=== PATIENT | male | born 1960 | race Caucasian/White ===

== ENCOUNTER 2017-05-25 06:23 | Outpatient (CLI) | payer MEDICAID ==
[~2017-05-25] VITALS: Ht 175.3 cm; Wt 81.8 kg
--- NOTE | ~2017-05-25 | HEMODYNAMI ---
PATIENT:MARLA PIERCE MEDICAL RECORD: [id number] : 58 LOCATION:[facility] ADMISSION DATE: 05/25/17 Generatedon:05/25/20179:14 Patient name: MARLA PIERCE Patient #: [id number] SSN: : 1960 Date of study: 05/25/2017 Page: Of Hemodynamic Procedure Report Patient Data Patient Demographics Procedure consent was obtained First Name: MARLA Gender: Male Last Name: KARI : 1960 Middle Initial: D Age: 56 year(s) Patient #: [id number] Race: Unknown Additional ID: [id number] Contact details [address]: [address] [place] [address] State: [place] City: [place] Zip code: [address] Past Medical History Allergies: No known allergies Admission Admission Data Admission Date: 05/25/2017 Admission Time: 6:23 Height (in.): 72 BSA: 2.12 (m2) Height (cm.): 182.88 BMI: 26.72 (kg/m2) Weight (lbs.): 197 Weight (kg.): 89.36 Procedure Procedure Types Cath Procedure Diagnostic Procedure LHC LHC w/Coronaries Miscellaneous Procedures Moderate Sedation up to 15 minutes Procedure Description Procedure Date Procedure Date: 05/25/2017 Procedure Start Time: 8:47 Procedure End Time: 9:13 Procedure Staff Name Function Cristopher Butterfield MD Performing Physician Mike Tirado RN Die Designer Apprentice Martha Patel RT Monitor Morro Lowery RT Scrub Thelma Gomez RN Nurse Procedure Data Cath Procedure Fluoroscopy Diagnostic fluoroscopy Total fluoroscopy Time: 4.8 time: 4.8 min min Diagnostic fluoroscopy Total fluoroscopy dose: 796 dose: 796 mGy mGy Contrast Material Contrast Material Type Amount (ml) Isovue 300 102 Entry Location Entry Primary Successful Side Size Upsize Upsize Entry Closure Hernandez ccessful Closure Location (Fr) 1 (Fr) 2 (Fr) Remarks Device Remarks Femoral Right 5 Fr Exoseal artery Radial Right 6 Fr Mechanical TR Band artery Short Compression Estimated blood loss: 10 ml Diagnostic catheters Device Type Used For End Catheter Placement Diagnostic Terumo 5Fr Procedure Falkner 110cm catheter Cordis 5Fr JL 4.0 Procedure Catheter (MP) Cordis 5Fr 3DRC Catheter Procedure (MP) Cordis 5Fr Pigtail LV Angiography Catheter (MP) Procedure Complications No complications Procedure Medications Medication Administration Route Dosage Oxygen NC 2 l/min Lidocaine 2% added to field 20 Heparin Flush Bag added to field 2 bags (1000units/500ml NS) 0.9% NaCl I.V. 100 ml/hr Radial Cocktail added to field 1 syringe (Verapomil 2mg/Nitro 400mcg/Heparin 1500units) Versed I.V. 1 mg Versed I.V. 1 mg Fentanyl I.V. 50 mcg Fentanyl I.V. 50 mcg Versed I.V. 1 mg Fentanyl I.V. 50 mcg Hemodynamics Rest BSA: 2.12 (m2) O2 Consumption: Estimated: 263.5 (ml/min) O2 Consumption indexed: Estimated:124.29 (ml/min/m) Heart Rate: 86 (bpm) Pressure Samples Time Site Value (mmHg) Purpose Heart Use Rate(bpm) 8:51 LV 159/1,19 Snapshot 99 8:52 LV 158/4,18 Snapshot 97 9:08 LV 134/4,20 Snapshot 88 9:08 AO 134/87(109) Pullback 89 9:08 LV 140/6,23 Pullback 89 Gradients Valve Time Site 1 Site 2 Mean SEP/DFP Peak To Heart Use (mmHg) (sec/min) Peak Rate (mmHg) (bpm) Aortic 8:52 LV AO 95 Aortic 9:08 LV AO 21 8 6 89 140/6,23 134/87(109) Calculations Valve P-P Mean Valve Index Valve Source Name Gradient Area Flow (cm2) Aortic 6 21 6 21 Snapshots Pre Cath Intra NCS Post Cath Vital Signs Time Heart Resp SPO2 etCO2 [id number] NIBP (mmHg) Rhythm Pain Sedation Rate (ipm) (%) (mmHg) (mmHg) Status Level (bpm) 8:19:21 83 16 99 0 0 167/115(151) NSR 0 (11) 10(A) , No pain 8:23:42 87 21 97 0 0 170/117(141) NSR 0 (11) 10(A) , No pain 8:28:02 86 16 95 0 0 162/111(133) NSR 0 (11) 10(A) , No pain 8:32:18 88 17 95 0 0 164/109(141) NSR 0 (11) 10(A) , No pain 8:36:36 87 15 94 0 0 157/104(126) NSR 0 (11) 10(A) , No pain 8:40:50 86 15 95 0 0 156/108(137) NSR 0 (11) 9(A) , No pain 8:45:04 87 15 94 0 0 150/97(131) NSR 0 (11) 9(A) , No pain 8:49:16 87 15 95 0 0 152/113(138) NSR 0 (11) 9(A) , No pain 8:53:28 94 14 96 0 0 140/97(124) NSR 0 (11) 9(A) , No pain 8:57:37 92 14 94 0 0 133/88(115) NSR 0 (11) 9(A) , No pain 9:01:45 90 15 96 0 0 130/90(113) NSR 0 (11) 9(A) , No pain 9:05:53 88 15 95 0 0 126/89(108) NSR 0 (11) 10(A) , No pain 9:09:59 86 14 95 0 0 130/91(114) NSR 0 (11) 10(A) , No pain Medications Time Medication Route Dose Verified Delivered Reason Notes Eff ectiveness by by 8:22:24 Oxygen NC 2 l/min Cristopher Buffie used for Scout Gomez RN procedure 8:22:31 Lidocaine 2% added 20ml Cristopher Cristopher for local to vial Scout Butterfield MD anesthetic field 8:22:59 Heparin Flush added 2 bags Cristopher Cristopher used for Bag to Scout Butterfield MD procedure (1000units/500ml field NS) 8:23:07 0.9% NaCl I.V. 100 Cristopher Buffie Per ml/hr Scout Gomez RN physician 8:35:00 Versed I.V. 1 mg Cristopher Buffie for Scout Gomez RN sedation 8:35:07 Fentanyl I.V. 50 mcg Cristopher Buffie for Scout Gomez RN sedation 8:42:01 Versed I.V. 1 mg Cristopher Buffie for Scout Gomez RN sedation 8:42:08 Fentanyl I.V. 50 mcg Cristopher Buffie for Scout Gomez RN sedation 8:49:35 Radial Cocktail added 1 Cristopher Buffie (Verapomil to syringe Scout Gomez RN 2mg/Nitro field 400mcg/Heparin 1500units) 8:50:26 Versed I.V. 1 mg Cristopher Buffie for Scout Gomez RN sedation 8:50:30 Fentanyl I.V. 50 mcg Cristopher Buffie for Scout Gomez RN sedation Procedure Log Time Note 8:06:27 Patient Height : 72 cm 8:06:35 Patient Weight : 197 kg 8:06:47 Diagnostic Cath Status : Elective 8:07:30 Mike Tirado RN sent for patient. Start room use. 8:07:42 Time tracking: Regular hours 8:07:47 Plan of Care:Hemodynamics will remain stable., Cardiac rhythm will remain stable., Comfort level will be maintained., Respiratory function will remain adequate., Patient/ family verbilizes understanding of procedure., Procedure tolerated without complication., Recovers from procedure without complications.. 8:08:12 Patient received from Pre/Post Procedure Room to CCL 1 Alert and oriented. Tansferred to table in Supine position. 8:08:15 Warm blankets applied, and leslie hugger turned on for patient comfort. 8:08:17 Correct patient and procedure confirmed by team. 8:08:19 Signed procedure consent form obtained from patient. 8:08:40 H&P Date Dictated: 05/19/2017 Within 30 days and on chart., H&P Addendum completed by physician on day of procedure. (MUST COMPLETE FOR ALL OUTPATIENTS). 8:08:43 Pre-procedure instructions explained to patient. 8:08:46 Pre-op teaching completed and patient verbalized understanding. 8:08:48 Family in waiting room. 8:08:51 Patient NPO since Midnight. 8:09:24 Patient allergic to No known allergies 8:09:31 Is the patient allergic to Iodine/contrast media? No. 8:09:47 Is patient on blood thinner?No 8:09:48 Patient diabetic? Yes. 8:09:49 If diabetic: On Metformin? Yes 8:09:52 If on Metformin: Last Dose? 05/24/2017 8:09:58 Previous problem with sedation/anesthesia? No ? 8:10:02 Snore? No 8:10:05 Sleep apnea? No 8:10:10 Dentures? No ? 8:10:19 Patient pain scale 0/10 ?. 8:10:27 IV patent on arrival in left forearm with 0.9% NaCl at [facility]. 8:10:38 Lab results completed and on chart. 8:10:44 Right Radial & Right Groin area was prepped with chlora-prep and draped in sterile fashion 8:10:45 Alarms reviewed by R. N. 8:10:46 Sharps counted by scrub and verified by R.N. 8:18:10 Vital chart was started 8:22:24 Oxygen 2 l/min NC was administered by Thelma Gomez RN; used for procedure; 8:22:31 Lidocaine 2% 20ml vial added to field was administered by Cristopher Butterfield MD; for local anesthetic; 8:22:59 Heparin Flush Bag (1000units/500ml NS) 2 bags added to field was administered by Cristopher Butterfield MD; used for procedure; 8:23:01 ECG and BP/O2 sat monitors applied to patient. 8:23:03 Baseline sample Acquired. 8:23:07 0.9% NaCl 100 ml/hr I.V. was administered by Thelma Gomez RN; Per physician; 8:23:07 Rhythm: sinus rhythm 8:23:09 Full Disclosure recording started 8:23:26 Use device set Radial Dx 8:23:30 Acist Syringe opened to sterile field. 8:23:31 Medline Cath Pack opened to sterile field. 8:23:32 Bag Decanter opened to sterile field. 8:23:33 Terumo 6Fr Slender Glidesheath opened to sterile field. 8:23:33 St Chirag 260cm J .035 wire opened to sterile field. 8:23:33 Acist Hand Control opened to sterile field. 8:23:34 Acist Manifold opened to sterile field. 8:23:34 Tegaderm 4 x 4 opened to sterile field. 8:23:35 MBrace Wrist Support opened to sterile field. 8:24:03 Cook 21G 4cm Radial Needle opened to sterile field. 8:31:39 Zero performed for pressure channel P1 8:31:44 Zero performed for pressure channel P1 8:33:16 Physician arrived 8:33:16 --------ALL STOP TIME OUT------ 8:33:17 Final Timeout: patient, procedure, and site verified with staff and physician. All members of the team are in agreement. 8:33:19 Right Radial & Right Groin site verified by team. 8:33:22 Physical assessment completed. ASA score P 2 - A patient with mild systemic disease as per Cristopher Butterfield MD. 8:33:27 Sedation plan: IV Moderate Sedation Versed, Fentanyl 8:35:00 Versed 1 mg I.V. was administered by Thelma Gomez RN; for sedation; 8:35:07 Fentanyl 50 mcg I.V. was administered by Thelma Gomez RN; for sedation; 8:42:01 Versed 1 mg I.V. was administered by Thelma Gomez RN; for sedation; 8:42:08 Fentanyl 50 mcg I.V. was administered by Thelma Gomez RN; for sedation; 8:47:17 Procedure started. 8:47:37 Local anesthetic to right radial artery with Lidocaine 2% by Cristopher Butterfield MD.INITIAL ACCESS ONLY 8:48:24 A 6 Fr Short sheath was inserted into the Right Radial artery 8:49:35 Radial Cocktail (Verapomil 2mg/Nitro 400mcg/Heparin 1500units) 1 syringe added to field was administered by Thelma Gomez RN; ; 8:50:26 Versed 1 mg I.V. was administered by Thelma Gomez RN; for sedation; 8:50:30 Fentanyl 50 mcg I.V. was administered by Thelma Gomez RN; for sedation; 8:51:43 A Diagnostic Terumo 5Fr Falkner 110cm catheter was advanced over the wire and used for Procedure. 8:52:10 LV gram done using WILLIAM 8:52:46 EF : 50 % 8:53:22 Terumo 5Fr [place] Sheath opened to sterile field. 8:53:28 Use device set Multipack Set 8:53:41 Diagnostic Infinity 5Fr Multipack catheter opened to sterile field. 8:54:11 unable to use radial artery to cannulate arteries 8:54:31 Local anesthetic to right femoral artery with Lidocaine 2% by Cristopher Butterfield MD.ADDITIONAL ACCESS 8:54:56 A 5 Fr sheath was inserted into the Right Femoral artery 8:58:13 A Cordis 5Fr JL 4.0 Catheter (MP) was advanced over the wire and used for Procedure. 9:00:09 Catheter removed. 9:00:22 A Cordis 5Fr 3DRC Catheter (MP) was advanced over the wire and used for Procedure. 9:06:23 RCA angiography performed. 9:06:29 HOYT angiography performed. 9:06:35 Catheter removed. 9:07:52 A Cordis 5Fr Pigtail Catheter (MP) was advanced over the wire and used for LV Angiography. 9:08:52 Catheter removed. 9:09:07 Cordis 5Fr Exoseal opened to sterile field. 9:09:55 Sheath removed intact; hemostasis achieved with Exoseal to the Right Femoral artery. 9:10:17 Terumo TR Band Standard opened to sterile field. 9:11:11 Sheath removed intact; hemostasis achieved with Mechanical Compression to the Right Radial artery. 9:11:15 Procedure ended.(Physican Out) 9:11:29 Fluoroscopy time 04.80 minutes. 9:11:34 Flurop Dose total: 796 9:11:34 Fluoroscopy dose: 796 mGy 9:11:39 Contrast amount:Isovue 300 102ml. 9:11:41 Sharps counted by scrub and verified by R.N. 9:11:47 TR band inflated with 10cc of air. 9:11:49 Insertion/operative site no bleeding no hematoma. 9:11:54 Post-op/insertion site Right Femoral artery dressed using a 4 x 4 and Tegaderm. 9:11:59 Post right femoral artery:stable 9:12:03 Post Procedure Pulses reassessed and unchanged 9:12:10 Post-procedure physical assessment completed. ASA score P 3 - A patient with severe systemic disease as per Cristopher Butterfield MD. 9:12:22 Post procedure rhythm: unchanged. 9:12:26 Estimated blood loss: 10 ml 9:12:29 Post procedure instruction explained to patient.Patient verbalizes understanding. 9:12:47 Procedure and supply charges have been captured, reviewed, submitted and are correct. 9:13:29 Procedure Complication : No complications 9:13:35 Vital chart was stopped 9:13:36 See physician's report for complete and final results. 9:13:39 Report given to Pre/Post Procedure Room. 9:13:43 Patient transfered to Pre/Post Procedure Room with Stretcher. 9:13:47 Procedure ended. 9:13:47 Full Disclosure recording stopped 9:13:55 End room use (Document Last) Device Usage Item Name Manufacture Quantity Catalog Hospital Part Current Minimal Lot# / Number Charge Number Stock Stock Serial# Code Acist Acist 1 [id number] [id number] 872310 462796 20 Syringe [employer] Inc Medline Cardinal 1 [id number] 702620 76650 982942 5 Cath Pack Health Bag Microtek 1 2001S 912113 48109 306555 5 Decanter Medical Inc. Terumo 6Fr Terumo 1 [id number] 485056 435414 798437 [address] Chirag 1 642318 478777 179506 527711 30 260cm J .035 wire Acist Hand Acist 1 06419 055117 363329 969750 5 Control Medical [employer] Inc Acist Acist 1 41774 123498 802762 260037 5 Manifold Medical [employer] Inc Tegaderm 4 3M 1 1626W 095372 743683 435194 5 x 4 MBrace Advanced 1 140-0250-00 880981 47788 975352 5 Wrist Vascular Support Dynamics Cook 21G Cook Medical 1 [id number] 512040 497556 578383 5 4cm Radial Needle Diagnostic Terumo 1 405013 252421 283404 479682 5 Terumo 5Fr Falkner 110cm catheter Terumo 5Fr Terumo 1 [id number] 570758 241035 675965 40 [place] Sheath Diagnostic Cardinal 1 [id number] 686773 10020 757734 30 Infinity Health 5Fr Multipack catheter Cordis 5Fr Cardinal 1 [id number] 5 JL 4.0 Health Catheter (MP) Cordis 5Fr Cardinal 1 723928 5 3DRC Health Catheter (MP) Cordis 5Fr Cardinal 1 222045 5 Pigtail Health Catheter (MP) Cordis 5Fr Cardinal 1 EX500 644920 584285 132333 10 Exoseal Health Terumo TR Terumo 1 [id number] 990956 452349 094942 40 Band Standard Signature Audit [place] Stage Time Signature Unsigned Intra-Procedure 05/25/2017 Martha Patel 9:14:12 AM RT(R) Signatures Monitor : Martha Patel Signature : RT Date : Time : [facility] [address] [place] [address]
[2017-05-25] MEDS ORDERED: ZESTRIL20 MG PO (06:54)
[2017-05-25] MEDS ORDERED: GLUCOPHAGE500 MG PO (06:55)
[2017-05-25] MEDS ORDERED: NORVASC10 MG PO (06:55)
[2017-05-25 07:03] VITALS: BP 147/100; Ht 175.3 cm; Wt 81.8 kg
[2017-05-25 07:09] LABS: BASOPHILS 0.5 % (0-2); EOSINOPHILS 3.1 % (0-7); HEMATOCRIT 41.7 % (42.0-54.0); HEMOGLOBIN 14.2 g/dL (13.5-17.5); IMMATURE GRANULOCYTES 1.8 % (0-5); MCH 31.2 pg (26.0-34.0); MCHC 34.1 g/dL (31.0-37.0); MCV 91.6 fL (80.0-100.0); MEAN PLATELET VOLUME 10.4 fL (7.4-10.4); NEUTROPHILS 54.6 % (40-80); RBC 4.55 10x6/uL (4.20-6.10); RDW 13.9 % (11.5-14.5); WBC 10.7 10x3/uL (4.8-10.8)
[2017-05-25 07:23] LABS: CALC OSMOLALITY 282 mosm/kg (275-300); CALCIUM 8.3 mg/dL (8.5-10.1); CARBON DIOXIDE 25.9 mmol/L (21.0-32.0); CHLORIDE - SERUM 103 mmol/L (98-107); GLUCOSE 144 mg/dL (74-106); POTASSIUM - SERUM 4.1 mmol/L (3.5-5.1); SODIUM 140 mmol/L (136-145); UREA NITROGEN 16 mg/dL (7-18); eGFR NON AFRICAN AMERICAN 82 mL/min (90-120)
[2017-05-25 07:30] LABS: PLATELET COUNT 316 10x3/uL (130-400)
--- NOTE | 2017-05-25 09:45 | NUR ---
2L NC, NO RESP DISTRESS NOTED. RIGHT GROIN 5F EXOSEAL CDI, NO BLEEDING OR HEMATOMA NOTED. NO C/O CHEST PAIN OR NAUSEA. VSS. DRINK GIVEN. FAMILY AT BEDSIDE, CALL LIGHT WITHIN REACH.
--- NOTE | 2017-05-25 10:15 | NUR ---
2L NC, NO RESP DISTRESS. RIGHT GROIN 5F EXOSEAL CDI, NO BLEEDING OR HEMATOMA NOTED. RIGHT WRIST TR BAND IN PLACE, NO BLEEDING NOTED. VSS. NO C/O PAIN.
--- NOTE | 2017-05-25 10:30 | NUR ---
RESTING QUIETLY. NO DISTRESS NOTED. NO C/O PAIN. RIGHT WRIST TR BAND CDI. RIGHT GROIN 5F EXOSEAL CDI, NO BLEEDING OR HEMATOMA NOTED. VSS. CALL LIGHT WITHIN REACH.
--- NOTE | 2017-05-25 11:00 | NUR ---
3CC OF AIR REMOVED FROM TR BAND, NO BLEEDING NOTED.
--- NOTE | 2017-05-25 11:25 | NUR ---
REPOSITIONED TO SITTING WITH HOB UP 45 DEGREES. 5 FR EXOSEAL R/GROIN CDI NO BLEEDING NO HEMATOMA NOTED. 2 CC AIR REMOVED FROM TR BAND WITH NO BLEEDING NOTED
--- NOTE | 2017-05-25 11:48 | NUR ---
LEFT WRIST PIV D/C'D WITH CATHETER INTACT, BAND AID TO SITE. UP TO BEDSIDE TO GET DRESSED.
--- NOTE | 2017-05-25 11:52 | NUR ---
DISHCARGE INSTRUCTIONS GIVEN, VERBALIZED UNDERSTANDING.
--- NOTE | 2017-05-25 12:00 | NUR ---
TAKEN OUT VIA WHEELCHAIR BY CATH TRANSPORT TECHNICIAN. LEFT FACILITY WITH FAMILY MEMBER AND ALL PERSONAL BELONGINGS.
== END 2017-05-25 12:00 | disposition home or self-care (01) ==
LOC: D.CATH 06:23
PROVIDERS: Internal Medicine Cardiovascular Disease
DX: I20.9 Angina pectoris, unspecified (principal); I10 Essential (primary) hypertension; R07.9 Chest pain, unspecified; E78.5 Hyperlipidemia, unspecified; Z01.812 Encounter for preprocedural laboratory examination; F17.200 Nicotine dependence, unspecified, uncomplicated; E11.9 Type 2 diabetes mellitus without complications

== ENCOUNTER → 2017-05-29 15:39 | Outpatient (CLI) | payer MEDICAID ==
[2017-05-25 07:03] VITALS: BMI 26.6
[~2017-05-29 15:39] MED LIST: GLUCOPHAGE500 MG PO; NORVASC10 MG PO; ZESTRIL20 MG PO
[2017-05-30 09:15] LABS: HEPATITIS C ANTIBODY <0.1 (0.0-0.9)
== END | disposition home or self-care (01) ==
LOC: D.US 15:30
PROVIDERS: Internal Medicine Cardiovascular Disease
DX: I65.23 Occlusion and stenosis of bilateral carotid arteries (principal); I25.10 Atherosclerotic heart disease of native coronary artery without angina pectoris; Z01.812 Encounter for preprocedural laboratory examination

== ENCOUNTER 2017-06-02 04:55 | Inpatient (IN) | payer MEDICAID ==
[~2017-06-02] VITALS: Ht 175.3 cm; Wt 89.1 kg
[2017-06-03 09:30] VITALS: Ht 175.3 cm; Wt 89.1 kg
[2017-07-11 10:00] VITALS: BP 131/89
[2017-07-11] MEDS ORDERED: ALBUTEROL2.5 MG/3 M UPD (13:02)
[2017-07-11] MEDS ORDERED: ALBUTEROL2.5 MG/3 M INH (13:02)
[2017-07-11] MEDS ORDERED: ELIQUIS5 MG NG (13:02)
[2017-07-11] MEDS ORDERED: METOPROLOL TART50 MG NG (13:03)
[2017-07-11] MEDS ORDERED: POTASSIUM20 MEQ/11 NG (13:03)
[2017-07-11] MEDS ORDERED: ASPIRIN81 MG NG (13:03)
[2017-07-11] MEDS ORDERED: HUMALOG 30100 UNITS/ SC (13:05)
[2017-07-11] MEDS ORDERED: VANCOMYCIN 1 GM/1 G1 IV (13:06)
[2017-07-11] MEDS ORDERED: LASIX20 MG PO (13:09)
== END 2017-07-11 16:12 | DRG 3 ==
LOC: D.SDCHOLD 04:55 → D.CVICU 04:55 → D.SDCHOLD 07:30 → D.CVICU 15:09
PROVIDERS: ADMIT Internal Medicine Cardiovascular Disease
PROC: 0212093 Bypass Coronary Artery, Three Arteries from Coronary Artery with Autologous Venous Tissue, Open Approach (ICD-10-PCS; 2017-06-02)
PROC: 06BP0ZZ Excision of Right Saphenous Vein, Open Approach (ICD-10-PCS; 2017-06-02)
PROC: B245ZZ4 Ultrasonography of Left Heart, Transesophageal (ICD-10-PCS; 2017-06-02)
PROC: 02100AC Bypass Coronary Artery, One Artery from Thoracic Artery with Autologous Arterial Tissue, Open Approach (ICD-10-PCS; principal; 2017-06-02 07:30)
PROC: 05HF33Z Insertion of Infusion Device into Left Cephalic Vein, Percutaneous Approach (ICD-10-PCS; 2017-06-05)
PROC: B54NZZA Ultrasonography of Left Upper Extremity Veins, Guidance (ICD-10-PCS; 2017-06-05)
PROC: 5A1955Z Respiratory Ventilation, Greater than 96 Consecutive Hours (ICD-10-PCS; 2017-06-10)
PROC: 0WU Anatomical Regions, General, Supplement (ICD-10-PCS; 2017-06-10)
PROC: 0B113F4 Bypass Trachea to Cutaneous with Tracheostomy Device, Percutaneous Approach (ICD-10-PCS; 2017-06-24)
PROC: 0DHA3UZ Insertion of Feeding Device into Jejunum, Percutaneous Approach (ICD-10-PCS; 2017-06-24)
PROC: 0B988ZX Drainage of Left Upper Lobe Bronchus, Via Natural or Artificial Opening Endoscopic, Diagnostic (ICD-10-PCS; 2017-06-24)
PROC: 0B948ZX Drainage of Right Upper Lobe Bronchus, Via Natural or Artificial Opening Endoscopic, Diagnostic (ICD-10-PCS; 2017-06-24)
DX: I25.110 Atherosclerotic heart disease of native coronary artery with unstable angina pectoris (principal); I50.23 Acute on chronic systolic (congestive) heart failure; J96.00 Acute respiratory failure, unspecified whether with hypoxia or hypercapnia; J18.9 Pneumonia, unspecified organism; J90 Pleural effusion, not elsewhere classified; J98.11 Atelectasis; T81.31XA Disruption of external operation (surgical) wound, not elsewhere classified, initial encounter; F17.203 Nicotine dependence unspecified, with withdrawal; J44.1 Chronic obstructive pulmonary disease with (acute) exacerbation; D62 Acute posthemorrhagic anemia; E46 Unspecified protein-calorie malnutrition; E87.3 Alkalosis; G72.81 Critical illness myopathy; I25.82 Chronic total occlusion of coronary artery; E11.43 Type 2 diabetes mellitus with diabetic autonomic (poly)neuropathy; K31.84 Gastroparesis; E78.5 Hyperlipidemia, unspecified; I11.0 Hypertensive heart disease with heart failure; I34.0 Nonrheumatic mitral (valve) insufficiency; E87.5 Hyperkalemia; S40.821A Blister (nonthermal) of right upper arm, initial encounter; X58.XXXA Exposure to other specified factors, initial encounter; Y92.230 Patient room in hospital as the place of occurrence of the external cause; D69.6 Thrombocytopenia, unspecified; J32.0 Chronic maxillary sinusitis; J32.2 Chronic ethmoidal sinusitis; J32.3 Chronic sphenoidal sinusitis; K59.00 Constipation, unspecified

== ENCOUNTER 2017-11-29 10:43 | Outpatient (CLI) | payer BC ==
[~2017-11-29] VITALS: Ht 175.3 cm; Wt 81.8 kg
--- NOTE | ~2017-11-29 | HEMODYNAMI ---
PATIENT:MARLA PIERCE MEDICAL RECORD: [id number] : 58 LOCATION:[facility] ADMISSION DATE: 11/29/17 Generatedon:11/29/201713:40 Patient name: MARLA PIERCE Patient #: [id number] SSN: : 1960 Date of study: 11/29/2017 Page: Of Hemodynamic Procedure Report Patient Data Patient Demographics Procedure consent was obtained First Name: MARLA Gender: Male Last Name: KARI : 1960 Middle Initial: JEANNE Age: 57 year(s) Patient #: [id number] Race: Unknown Additional ID: [id number] Contact details Address: [address] [place] [address] State: [place] City: [place] Zip code: [address] Past Medical History Allergies: No known allergies Admission Admission Data Admission Date: 11/29/2017 Admission Time: 10:43 Lab Results Lab Result Date: 11/29/2017 Lab Result Time: 0:00 Biochemistry Name Units Result Min Max BUN mg/dl 21 --(----)-* 7 18 Creatinine l 1.1 -*(----)-- 21 215 Kinase CBC Name Units Result Min Max Hemoglobin g/dl 13 -*(----)-- 13.5 17.5 Procedure Procedure Types Cath Procedure Diagnostic Procedure [facility] w/Coronaries w/Grafts PCI Procedure Coronary Stent Coronary Stent Initial Procedure Description Procedure Date Procedure Date: 11/29/2017 Procedure Start Time: 13:04 Procedure End Time: 13:36 Procedure Staff Name Function Cristopher Butterfield MD Performing Physician Thelma Gomez RN Nurse Ania Umana RN Nurse Mike Tirado RN Honey Producer Kandi Unger RT Scrub Martha Patel RT Monitor Procedure Data Cath Procedure Fluoroscopy Diagnostic fluoroscopy Total fluoroscopy Time: time: 6.43 min 6.43 min Diagnostic fluoroscopy Total fluoroscopy dose: dose: 1581 mGy 1581 mGy Contrast Material Contrast Material Type Amount (ml) Isovue 300 133 Entry Location Entry Primary Successful Side Size Upsize Upsize Entry Closure Succes sful Closure Location (Fr) 1 (Fr) 2 (Fr) Remarks Device Remarks Femoral Right 5 Fr 6 Fr Exoseal artery Short Estimated blood loss: 10 ml Diagnostic catheters Device Type Used For End Catheter Placement MULTIPACK JL 4.0 5Fr Procedure catheter DIAGNOSTIC AR 1 MOD 5Fr Procedure catheter ([id number]) DIAGNOSTIC IMT 5Fr Procedure Catheter ([id number]) MULTIPACK Pigtail 5 Fr Ventriculography catheter Procedure Complications No complications Procedure Medications Medication Administration Route Dosage 0.9% NaCl I.V. 100 ml/hr Oxygen NC 2 l/min Lidocaine 2% added to field 20 Heparin Flush Bag added to field 2 bags (1000units/500ml NS) Fentanyl I.V. 100 mcg Versed I.V. 2 mg Versed I.V. 2 mg Fentanyl I.V. 100 mcg Fentanyl I.V. 100 mcg Versed I.V. 2 mg Fentanyl I.V. 100 mcg Heparin Bolus I.V. 8000 units Versed I.V. 1 mg Plavix P.O. 600 mg Hemodynamics Rest Heart Rate: 91 (bpm) Pressure Samples Time Site Value (mmHg) Purpose Heart Use Rate(bpm) 13:21 LV 123/15,18 Snapshot 91 13:21 LV 141/0,18 Snapshot 91 13:22 AO 136/83(107) Pullback 90 13:22 LV 130/19,18 Pullback 90 Gradients Valve Time Site 1 Site 2 Mean SEP/DFP Peak To Heart Use (mmHg) (sec/min) Peak Rate (mmHg) (bpm) Aortic 13:22 LV AO 0 7 0 90 130/19,18 136/83(107) Calculations Valve P-P Mean Valve Index Valve Source Name Gradient Area Flow (cm2) Aortic 0 0 0 0 Snapshots Pre Cath Intra NCS Post Cath Vital Signs Time Heart Resp SPO2 etCO2 NIBP (mmHg) Rhythm Pain Sedation Rate (ipm) (%) (mmHg) Status Level (bpm) 12:52:10 80 14 99 20.4 148/99(119) NSR 0 (11) 10(A) , No pain 12:56:26 83 19 99 29.4 142/87(114) NSR 0 (11) 10(A) , No pain 13:00:38 83 19 98 32.4 138/85(105) NSR 0 (11) 10(A) , No pain 13:04:47 86 20 98 34.7 142/91(130) NSR 0 (11) 10(A) , No pain 13:08:57 83 17 94 24.1 120/83(95) NSR 0 (11) 10(A) , No pain 13:13:03 83 18 96 10.5 126/83(103) NSR 0 (11) 9(A) , No pain 13:17:09 87 18 95 12 128/85(105) NSR 0 (11) 10(A) , No pain 13:21:15 90 16 97 24.1 146/93(115) NSR 0 (11) 10(A) , No pain 13:25:27 93 14 97 31.7 143/90(104) NSR 0 (11) 9(A) , No pain 13:29:35 90 17 97 13.6 138/89(111) NSR 0 (11) 10(A) , No pain 13:34:42 91 18 96 18.8 113/89(109) NSR 0 (11) 10(A) , No pain Medications Time Medication Route Dose Verified Delivered Reason Not es Effectiveness by by 12:44:44 0.9% NaCl I.V. 100ml/hr Cristopher Ania used for Scout Umana RN procedure 12:44:52 Oxygen NC 2 l/min Cristopher Ania Per physician cSout Umana RN 12:44:59 Lidocaine 2% added 20ml Cristopher Cristopher for local to vial Scout Butterfield MD anesthetic field 12:45:05 Heparin Flush added 2 bags Cristopher Cristopher used for Bag to Scout Butterfield MD procedure (1000units/500ml field NS) 12:58:13 Fentanyl I.V. 100 mcg Cristopher Ania for sedation Scout Umana RN 12:58:20 Versed I.V. 2 mg Cristopher Ania for sedation Scout Umana RN 13:05:00 Fentanyl I.V. 100 mcg Cristopher Ania for sedation Scout Umana RN 13:05:54 Versed I.V. 2 mg Cristopher Ania for sedation Scout Umana RN 13:08:08 Fentanyl I.V. 100 mcg Cristopher Ania for sedation Scout Umana RN 13:08:13 Versed I.V. 2 mg Cristopher Ania for sedation Scout Umana RN 13:21:11 Fentanyl I.V. 100 mcg Cristopher Ania for sedation Scout Umana RN 13:27:18 Heparin Bolus I.V. 8000 Cristopher Ania for reina ified units Scout Umana RN anticoagulation by 13:30:14 Versed I.V. 1 mg Cristopher Ania for sedation Scout Umana RN 13:38:58 Plavix P.O. 600 mg Cristopher Ania for Scout Umana RN antiplatelet therapy Procedure Log Time Note 12:39:15 Mike Tirado RN sent for patient. Start room use. 12:39:16 Time tracking: Regular hours 12:39:19 Plan of Care:Hemodynamics will remain stable., Cardiac rhythm will remain stable., Comfort level will be maintained., Respiratory function will remain adequate., Patient/ family verbilizes understanding of procedure., Procedure tolerated without complication., Recovers from procedure without complications.. 12:43:52 Lab Result : Hemoglobin 13 g/dl 12:43:52 Lab Result : Creatinine Kinase 1.1 l 12:43:52 Lab Result : BUN 21 mg/dl 12:44:44 0.9% NaCl 100ml/hr I.V. was administered by Ania Umana RN; used for procedure; 12:44:52 Oxygen 2 l/min NC was administered by Ania Umana RN; Per physician; 12:44:59 Lidocaine 2% 20ml vial added to field was administered by Cristophre Butterfield MD; for local anesthetic; 12:45:05 Heparin Flush Bag (1000units/500ml NS) 2 bags added to field was administered by Cristopher Butterfield MD; used for procedure; 12:48:14 Patient received from Pre/Post Procedure Room to CCL 2 Alert and oriented. Tansferred to table in Supine position. 12:48:16 Warm blankets applied, and leslie hugger turned on for patient comfort. 12:48:17 Correct patient and procedure confirmed by team. 12:48:29 Signed procedure consent form obtained from patient. 12:49:46 H&P Date Dictated: 11/09/2017 Within 30 days and on chart.. 12:49:47 Pre-procedure instructions explained to patient. 12:49:49 Family in waiting room. 12:49:50 Patient NPO since Midnight. 12:50:05 Patient allergic to No known allergies 12:50:28 Is the patient allergic to Iodine/contrast media? No. 12:50:31 Was the patient premedicated? No 12:50:34 Is patient on blood thinner?No 12:50:39 Patient diabetic? Yes. 12:50:40 If diabetic: On Metformin? Yes 12:50:45 If on Metformin: Last Dose? 11/27/2017 12:50:56 Snore? No 12:50:57 Sleep apnea? No 12:50:59 Vital chart was started 12:51:02 Airway obstruction? Yes COPD 12:51:58 Dentures? No ? 12:52:07 Patient pain scale 0/10 ?. 12:52:26 IV patent on arrival in right hand with 0.9% NaCl at O. 12:52:34 Lab results completed and on chart. 12:52:41 Right groin area was prepped with chlora-prep and draped in sterile fashion 12:52:45 Alarms reviewed by R. N. 12:52:46 Sharps counted by scrub and verified by R.N. 12:52:48 Physician paged 12:52:51 Physician arrived 12:52:52 --------ALL STOP TIME OUT------ 12:52:53 Final Timeout: patient, procedure, and site verified with staff and physician. All members of the team are in agreement. 12:52:55 Right Radial & Right Groin site verified by team. 12:53:08 Physical assessment completed. ASA score P 2 - A patient with mild systemic disease as per Cristopher Butterfield MD. 12:53:12 Sedation plan: IV Moderate Sedation Medication:Versed, Fentanyl 12:58:13 Fentanyl 100 mcg I.V. was administered by Ania Umana RN; for sedation; 12:58:20 Versed 2 mg I.V. was administered by Ania Umana RN; for sedation; 12:59:20 Diagnostic Cath status Elective 12:59:27 Use device set Femoral Dx 12:59:31 ACIST Syringe (76364) opened to sterile field. 12:59:32 Bag Decanter (2002S) opened to sterile field. 12:59:32 Medline Cath Pack ([id number]) opened to sterile field. 12:59:32 SHEATH 5FR [place] (TJS039) opened to sterile field. 12:59:33 DIAGNOSTIC WIRE .035 260cm J wire (008826) opened to sterile field. 12:59:35 ACIST Manifold (02729) opened to sterile field. 12:59:36 ACIST Hand Control (05046) opened to sterile field. 12:59:37 DIAGNOSTIC Multipack 5Fr catheter set (BQ8486) opened to sterile field. 12:59:48 Tegaderm 4 x 4 (1626W) opened to sterile field. 12:59:50 PERCUTANEOUS ENTRY 19GA needle opened to sterile field. 13:04:37 Procedure started. 13:04:37 Full Disclosure recording started 13:04:49 Local anesthetic to right femoral artery with Lidocaine 2% by Cristopher Butterfield MD.INITIAL ACCESS ONLY 13:05:00 Fentanyl 100 mcg I.V. was administered by Ania Umana RN; for sedation; 13:05:14 Zero performed for pressure channel P1 13:05:54 Versed 2 mg I.V. was administered by Ania Umana RN; for sedation; 13:06:42 A 5 Fr sheath was inserted into the Right Femoral artery 13:08:08 Fentanyl 100 mcg I.V. was administered by Ania Umana RN; for sedation; 13:08:13 Versed 2 mg I.V. was administered by Ania Umana RN; for sedation; 13:11:30 A MULTIPACK JL 4.0 5Fr catheter was advanced over the wire and used for Procedure. 13:12:10 LCA angiography performed. 13:13:15 Catheter removed. 13:14:42 A DIAGNOSTIC AR 1 MOD 5Fr catheter ([id number]) was advanced over the wire and used for Procedure. 13:15:02 SVG angiography performed. 13:15:08 SVG to RCA angiography performed. 13:15:36 RCA angiography performed. 13:16:18 SVG to Diag occluded. 13:17:36 Catheter removed. 13:18:08 A DIAGNOSTIC IMT 5Fr Catheter ([id number]) was advanced over the wire and used for Procedure. 13:18:11 HOYT to LAD angiography performed. 13:20:11 Catheter removed. 13:20:51 A MULTIPACK Pigtail 5 Fr catheter was advanced over the wire and used for Ventriculography. 13:21:11 Fentanyl 100 mcg I.V. was administered by Ania Umana RN; for sedation; 13:22:05 EF : 45 % 13:22:16 Catheter removed. 13:25:34 INFLATOR Merit BasixCompak (NZ6484) opened to sterile field. 13:25:35 GUIDE 6FR XBLAD 3.5 catheter ([id number]) opened to sterile field. 13:25:36 SHEATH 6FR [place] (SIJ477) opened to sterile field. 13:25:37 TUBING High Pressure Extension Tubing (Scout) (UP5391H) opened to sterile field. 13:26:47 BMW 190cm [place] 2 J wire ([id number]) opened to sterile field. 13:26:57 Sheath upsized to a 6 Fr Short. 13:27:18 Heparin Bolus 8000 units I.V. was administered by Ania Umana RN; for anticoagulation; verified by 13:27:28 6 Fr XBLAD3.5 guide catheter was inserted over the wire 13:27:32 BMW wire advanced. 13:27:34 Wire advanced across lesion. 13:29:48 Study PCI Site: [place] Diag1 has 80% stenosis. 13:30:14 Versed 1 mg I.V. was administered by Ania Umana RN; for sedation; 13:32:12 Inflation Number: 1 A ANGY OTW 2.5 x 12 stent ([id number]) was prepped and advanced across the 1st Diag. The stent was deployed at 15 PATRICIA for 0:10 (min:sec). 13:33:13 EXOSEAL 6Fr (EX600) opened to sterile field. 13:33:22 Stent catheter was removed intact over wire. 13:33:22 Wire removed. 13:33:23 Guide catheter removed. 13:33:33 Sheath removed intact; hemostasis achieved with Exoseal to the Right Femoral artery. 13:33:36 Procedure ended.(Physican Out) 13:34:33 Fluoroscopy time 06.43 minutes. 13:34:39 Flurop Dose total: 1581 13:34:39 Fluoroscopy dose: 1581 mGy 13:35:04 Contrast amount:Isovue 300 133ml. 13:35:06 Sharps counted by scrub and verified by R.N. 13:35:15 Insertion/operative site no bleeding no hematoma. 13:35:18 Post-op/insertion site Right Femoral artery dressed using a 4 x 4 and Tegaderm. 13:35:21 Post Procedure Pulses reassessed and unchanged 13:35:24 Post-procedure physical assessment completed. ASA score P 2 - A patient with mild systemic disease as per Cristopher Butterfield MD. 13:35:27 Post procedure rhythm: unchanged. 13:35:31 Estimated blood loss: 10 ml 13:35:33 Post procedure instruction explained to patient.Patient verbalizes understanding. 13:35:59 Procedure type changed to Cath procedure, Diagnostic procedure, LHC, LHC w/Coronaries w/Grafts, PCI procedure, Coronary Stent, Coronary Stent Initial 13:36:01 Procedure and supply charges have been captured, reviewed, submitted and are correct. 13:36:40 Procedure Complication : No complications 13:36:42 Vital chart was stopped 13:36:43 See physician's report for complete and final results. 13:36:44 Report given to Pre/Post Procedure Room. 13:36:49 Patient transfered to Pre/Post Procedure Room with Stretcher. 13:36:51 Procedure ended. 13:36:51 Full Disclosure recording stopped 13:36:54 End room use (Document Last) 13:38:58 Plavix 600 mg P.O. was administered by Ania Umana RN; for antiplatelet therapy; Intervention Summary Intervention Notes Time ActionType Lesion and Equipment Action# Pressure Duration Attributes Used 13:32:12 Place stent 1st Diag ANGY OTW 2.5 1 15 00:10 x 12 stent ([id number]) Device Usage Item Name Manufacture Quantity Catalog Number Hospital Part Current Min imal Lot# / Charge Number Stock Stock Serial# Code ACIST Syringe Acist 1 63317 607523 413854 512695 20 (30535) Medical Systems Inc Bag Decanter Microtek 1 2001S 592411 73550 374676 5 () Medical Inc. Medline Cath Cardinal 1 [id number] 909660 45131 005874 5 Pack Health ([id number]) SHEATH 5FR Terumo 1 RBU178 681940 719944 007831 40 [place] Mile (FLF477) DIAGNOSTIC [facility] [place] 1 470845 424034 790813 411498 30 WIRE .035 260cm J wire (301862) ACIST Acist 1 95556 068080 798932 275366 5 Manifold Medical (21690) Systems Inc ACIST Hand Acist 1 85361 416259 025860 815115 5 Control Medical (30390) Systems Inc DIAGNOSTIC Cardinal 1 OW1984 311282 22546 402215 30 Multipack 5Fr Health catheter set (SC2939) Tegaderm 4 x 3M 1 1626W 457903 548204 854088 5 4 (1626W) PERCUTANEOUS [facility] 1 I92858 132971 668487 5 ENTRY 19GA needle MULTIPACK JL Cardinal 1 033222 5 4.0 5Fr Health catheter DIAGNOSTIC [place] Cardinal 1 [id number] 125898 369282 081961 15 1 MOD 5Fr Health catheter (238771M) DIAGNOSTIC [place] 1 [id number] 537682 855583 81274 5 IMT 5Fr Scientific Catheter ([id number]) MULTIPACK Cardinal 1 650460 5 Pigtail 5 Fr Health catheter INFLATOR Merit 1 KV2340 695027 420666 957787 15 [facility] Medical BasixCompak (UK8556) GUIDE 6FR Cardinal 1 [id number] 161312 441251 446599 10 XBLAD 3.5 Health catheter (11187828) SHEATH 6FR Terumo 1 LUS695 457673 376060 570251 40 [place] (WPJ833) TUBING High Merit 1 [id number] 365723 52594 336563 10 Pressure Medical Extension Tubing ([place]) (UY7506X) BMW 190cm [place] 1 [id number] 043797 35477 423422 5 [place] 2 J Vascular wire (5871836F) ANGY OTW 2.5 Medtronic 1 [id number] 795470 95365 774882 5 [id number] x 12 stent ([id number]) EXOSEAL 6Fr Cardinal 1 EX600 629249 467780 852829 10 (EX600) Health Signature Audit [place] Stage Time Signature Unsigned Intra-Procedure 11/29/2017 Martha Patel 1:40:40 PM RT(R) Signatures Monitor : Martha Patel Signature : RT Date : Time : [place] [address] [place] [address]
[~2017-11-29 10:43] MED LIST changes: +ALBUTEROL2.5 MG/3 M INH; +ALBUTEROL2.5 MG/3 M UPD; +ASPIRIN81 MG NG; +ELIQUIS5 MG NG; +HUMALOG 30100 UNITS/ SC; +LASIX20 MG PO; +METOPROLOL TART50 MG NG; +POTASSIUM20 MEQ/11 NG; +VANCOMYCIN 1 GM/1 G1 IV
[2017-11-29] MEDS ORDERED: GLUCOPHAGE500 MG PO (11:02)
[2017-11-29] MEDS ORDERED: ZOCOR20 MG PO (11:02)
[2017-11-29] MEDS ORDERED: PROTONIX40 MG PO (11:02)
[2017-11-29] MEDS ORDERED: ANORO ELLIPTA1 EACH INH (11:03)
[2017-11-29 11:13] VITALS: BP 147/84; Ht 175.3 cm; Wt 81.8 kg
[2017-11-29 11:31] LABS: BASOPHILS 0.6 % (0-2); EOSINOPHILS 2.4 % (0-7); HEMATOCRIT 39.9 % (42.0-54.0); IMMATURE GRANULOCYTES 2.9 % (0-5); LYMPHOCYTES 28.8 % (15-50); MCH 27.2 pg (26.0-34.0); MCHC 32.6 g/dL (31.0-37.0); MCV 83.5 fL (80.0-100.0); MEAN PLATELET VOLUME 10.1 fL (7.4-10.4); MONOCYTES 11.6 % (2-11); NEUTROPHILS 53.7 % (40-80); PLATELET COUNT 447 10x3/uL (130-400); RBC 4.78 10x6/uL (4.20-6.10); RDW 16.2 % (11.5-14.5)
[2017-11-29 11:52] LABS: ANION GAP 16.8 mmol/L (8-16); CALCIUM 9.5 mg/dL (8.5-10.1); CARBON DIOXIDE 22.6 mmol/L (21.0-32.0); CREATININE - SERUM 1.1 mg/dL (0.6-1.3); POTASSIUM - SERUM 4.4 mmol/L (3.5-5.1)
[2017-11-29] MEDS ORDERED: PLAVIX75 MG PO (15:01)
[2017-11-29] MEDS ORDERED: BAYER CHEWABLE81 MG PO (15:05)
== END 2017-11-29 18:30 | disposition home or self-care (01) ==
LOC: D.CATH 10:43
PROVIDERS: Internal Medicine Cardiovascular Disease
DX: I25.119 Atherosclerotic heart disease of native coronary artery with unspecified angina pectoris (principal); Z95.1 Presence of aortocoronary bypass graft; Z01.812 Encounter for preprocedural laboratory examination
CPT/HCPCS: 93459; C9600